=== PATIENT | female | born 1950 | race Caucasian/White ===

== ENCOUNTER 2023-05-21 14:00 | Outpatient (AMB) | payer MEDICARE, SELFPAY ==
--- NOTE | 2023-05-21 14:24 | MHC.OFFVIS ---
Intake Intake Visit Reasons: spinal stenosis Sas Administrator Required: No Allergies penicillin V Allergy (Unknown, Verified 12/30/13 00:00) Penicillins [PENICILLINS] Allergy (Unknown, Unverified 12/30/19 14:45) RASH penicillin Allergy (Unknown, Uncoded 06/09/19 00:00) Assessment & Plan Assessment & Plan (1) Lumbago: Code(s): M54.50 - Low back pain, unspecified Qualifiers: Chronicity: chronic Back pain laterality: bilateral Sciatica presence: with sciatica Sciatica laterality: bilateral sciatica Qualified Code(s): M54.42 - Lumbago with sciatica, left side; M54.41 - Lumbago with sciatica, right side; G89.29 - Other chronic pain Plan Richelle is a pleasant 72-year-old female who comes in today with a chief complaint of severe low back pain for the last 10 years. She reports no inciting incident. She states her pain radiates into her bilateral lower extremities, worse on the left side. She is unable to pinpoint a exact distribution of her radiation, and states that it is all throughout her lower legs. She reports that standing and walking aggravate her symptoms, and states that she needs to lean over the shopping cart when walking around the grocery store, and finds herself needing to stop and sit after walking short distances. She reports that lying flat in her bed provides 100% relief of pain. She also gets regular epidural cortisone injections in the lumbar spine (last done in September) and reports modest relief for 2-3 weeks after each injection. She has been in physical therapy several times over the last few years for this issue, and states that it continues to worsen regardless of the conservative measures she takes. She has exhausted all [id number] remedies, taking Advil daily, utilizing [id number] pain patches, and trying to apply ice/heat. She feels she is now at the point where she is ready to pursue a surgical intervention to correct her problem. PMH: Hx pelvic prolapse fixation with surgical mesh in 2012, High cholesterol, generalized anxiety, fibromyalgia, hypertension. Social hx: Patient does not smoke, reports no substance use. Medications: Lisinopril, atorvastatin, Advil, alprazolam. Allergies: Penicillin. Physical exam: The patient has 4/5 strength with dorsiflexion and knee extension. The remainder of her strength is 5/5 intact. She reports sensational deficits over her bilateral lower extremities, which she describes as ?dullness. She states that her bilateral feet have a constant sensation of numbness/tingling. The rest of her sensation is intact. Her reflexes are 2+ intact. (-) straight leg raise bilaterally, (-) clonus. Imaging review: MRI of the lumbar spine completed 05/10/2023 at [facility] shows moderate central canal stenosis at L3-4, grade 1 spondylolisthesis, bilateral facet hypertrophy, and severe central canal stenosis and bilateral foraminal stenosis at L4-5, and moderate-severe degenerative disc disease with moderate central canal stenosis and bilateral foraminal stenosis at L5-S1. Impression: Richelle is a pleasant 72-year-old female who comes in today with a chief complaint of severe low back pain with radiation into her bilateral lower extremities. She states this pain has been ongoing, progressive, and worsening for the last 10 years. She has previously been evaluated at neurosurgical offices, however feels as though the interventions that were offered were too invasive. She is now the point where she is willing to consider any surgical intervention that will help alleviate her pain symptoms. After reviewing her MRI imaging with Dr. Villegas he offered her an L4-5 OLIF to decompress this level and correct the spondylolisthesis. She has been tentatively scheduled for 07/14/2023. Richelle was given risk and benefits of surgery including but not limited to infection, hematoma, nerve injury, durotomy, weakness, bowel/bladder injury, persistent pain, as well as the option to continue with conservative treatment and patient wishes to proceed with surgery. Richelle is aware she should stop her NSAIDs 7 days prior to surgery. All questions were answered to the best of our ability. If there is anything about this patients medical history that we have overlooked or concerns you have about us proceeding with surgery we would appreciate any input you can offer. Thank you for allowing us to care for your patient. The total time spent with this visit with this patient was 60 minutes reviewing history, physical exam, MRI imaging review, and implementation of treatment plan or further diagnostic testing Petey Villegas MD,PhD [facility] Coding Level of Care Code New Pt Level 5 (77306) Diagnoses Chronic bilateral low back pain with bilateral sciatica M54.42; M54.41; G89.29 Chronicity: chronic Back pain laterality: bilateral Sciatica presence: with sciatica Sciatica laterality: bilateral sciatica
== END 2023-05-21 15:37 | disposition home or self-care (01) ==
PROVIDERS: PCP Ophthalmology; Visit Provider Physician Assistant
DX: M54.42 Lumbago with sciatica, left side (principal); M54.41 Lumbago with sciatica, right side; G89.29 Other chronic pain
CPT/HCPCS: 99205

== ENCOUNTER → 2023-05-21 14:00 | Outpatient (BNVA) | payer MEDICARE, SELFPAY | PROVIDERS: PCP Ophthalmology; Visit Provider Physician Assistant | DX: M54.42 Lumbago with sciatica, left side (principal); M54.41 Lumbago with sciatica, right side; G89.29 Other chronic pain | CPT/HCPCS: 99202 ==

== ENCOUNTER 2023-10-14 14:05 | Outpatient (REF) | payer MEDICARE, SELFPAY ==
--- NOTE | ~2023-10-14 | US_ITS ---
EXAMINATION: US VENOUS ULTRASOUND WITH DOPPLER LOWER EXTREMITY, LEFT CLINICAL INFORMATION: Left lower extremity pain COMPARISON: None available. TECHNIQUE: Ultrasound of the deep veins is performed from the hip to the calf with compression sonography and color and pulse Doppler assessment. Spectral analysis with color-flow imaging is performed. FINDINGS: There is normal venous compression and respiratory variation and augmented flow. The visualized common femoral vein, superficial femoral vein, profunda femoral vein, popliteal vein, and the trifurcation region shows no evidence of deep venous thrombosis. There is no significant popliteal fossa cyst. If the patient's symptoms persist, followup ultrasound in 5 days 7 days might be of value to exclude proximal propagation from a non-visualized calf vein. US/US venous duplex LE LT IMPRESSION: No DVT demonstrated in the left lower extremity.
== END 2023-10-14 14:06 | disposition home or self-care (01) ==
LOC: HO.US 14:05
PROVIDERS: PCP Nurse Practitioner Family; Visit Provider Physician Assistant
DX: M79.662 Pain in left lower leg (principal)
CPT/HCPCS: 93971